=== PATIENT | female | born 1935 | race Caucasian/White ===

== ENCOUNTER 2018-10-09 08:05 | Outpatient (CLI) | payer OTHER ==
[~2018-10-09 08:05] MED LIST: ALDOMET500 MG PO; PEPCID40 MG PO; ZOFRAN4 MG PO; [UNRECOGNIZED DRUG - OTHER] PO
== END 2018-10-09 08:10 | disposition home or self-care (01) ==
LOC: RAD 08:05
DX: R31.29 Other microscopic hematuria (principal)

== ENCOUNTER → 2018-10-09 08:18 | Outpatient (CLI) | payer OTHER | END | disposition home or self-care (01) | LOC: LAB 08:18 | DX: R80.8 Other proteinuria (principal); I10 Essential (primary) hypertension ==

== ENCOUNTER 2022-10-23 13:13 | Emergency (ER) | payer OTHER ==
[~2022-10-23] VITALS: Ht 177.8 cm; Wt 65.8 kg
[2022-10-23] MEDS ORDERED: COZAAR25 MG (13:18)
[2022-10-23] MEDS ORDERED: ARICEPT5 MG (13:18)
== END 2022-10-23 19:04 | disposition home or self-care (01) ==
LOC: ER 13:13
PROVIDERS: Emergency Medicine
DX: I95.9 Hypotension, unspecified (principal)

== ENCOUNTER 2023-01-05 19:02 | Emergency (ER) | payer OTHER ==
[~2023-01-05] VITALS: Ht 157.5 cm; Wt 81.6 kg
[~2023-01-05 19:02] MED LIST changes: +ARICEPT5 MG; +COZAAR25 MG
[2023-01-05 20:36] LABS: HEMATOCRIT 40.1 % (36.0-45.00); HEMOGLOBIN 13.8 g/dL (12.0-15.00); MEAN CELL VOLUME 90.3 fL (80.00-100.00); MEAN CORPUSCULAR HEMOGLOBIN 31.1 pg (27.00-32.0); MEAN CORPUSCULAR HGB CONC 34.5 g/dl (32.0-36.0); PLATELET COUNT 158 K/uL (150-450); RED BLOOD COUNT 4.44 M/uL (4.00-6.00)
[2023-01-05 20:56] LABS: INR 1.04; PARTIAL THROMBOPLASTIN TIME 28.5 SECONDS (22.0-34.0); PROTHROMBIN TIME 10.9 SECONDS (9.0-11.5)
[2023-01-05 20:59] LABS: PH,URINE 8.5 (5.0-8.0); URINE APPEARANCE Cloudy; URINE BILIRRUBIN Negative (NEGATIVE); URINE BLOOD Negative; URINE COLOR Dark Yellow; URINE GLUCOSE Negative (NEGATIVE); URINE LEUKOCYTE Negative; URINE NITRATE Negative; URINE PROTEIN 30 (NEGATIVE)
[2023-01-05 21:02] LABS: URINE BACTERIA 178.8 uL (0.0-1933); URINE RBC 135.8 uL (0.0-20.8)
[2023-01-05 21:02] LABS: ALBUMIN 3.1 gm/dL (3.4-5.0); BILIRUBIN TOTAL 0.84 mg/dL (0.3-1.2); CALCIUM 9.8 mg/dL (8.5-10.1); CREATININE SERUM 0.8 mg/dL (0.55-1.02); GFR 67.85; GLOBULINA 3.7 G/DL (2.4-3.5); POTASSIUM 3.39 mEq/L (3.5-5.1); TOTAL PROTEIN 6.8 gm/dL (6.4-8.2)
[2023-01-05 21:09] LABS: URINE EPITHELIAL CELLS 0.9 uL (0.0-38.8)
== END 2023-01-06 00:27 | disposition home or self-care (01) ==
LOC: ER 19:02
PROVIDERS: General Practice
DX: R33.8 Other retention of urine (principal); I10 Essential (primary) hypertension; G30.8 Other Alzheimer's disease; F02.80 Dementia in other diseases classified elsewhere, unspecified severity, without behavioral disturbance, psychotic disturbance, mood disturbance, and anxiety; Z20.822 Contact with and (suspected) exposure to COVID-19; K59.00 Constipation, unspecified; D25.9 Leiomyoma of uterus, unspecified; K44.9 Diaphragmatic hernia without obstruction or gangrene

== ENCOUNTER 2023-09-17 17:21 | Emergency (ER) | payer OTHER ==
[~2023-09-17] VITALS: Ht 165.1 cm; Wt 68.0 kg
[2023-09-17 18:14] LABS: HEMATOCRIT 39.9 % (36.0-45.00); HEMOGLOBIN 13.9 g/dL (12.0-15.00); MEAN CELL VOLUME 91.1 fL (80.00-100.00); MEAN CORPUSCULAR HEMOGLOBIN 31.7 pg (27.00-32.0); MEAN CORPUSCULAR HGB CONC 34.8 g/dl (32.0-36.0); PLATELET COUNT 184 K/uL (150-450); RED BLOOD COUNT 4.37 M/uL (4.00-6.00); RED CELL DISTRIBUTION WIDTH 13.3 % (11.5-14.5)
[2023-09-17 18:47] LABS: ALBUMIN 3.6 gm/dL (3.4-5.0); BILIRUBIN TOTAL 0.51 mg/dL (0.3-1.2); CALCIUM 9.8 mg/dL (8.5-10.1); CREATININE SERUM 0.91 mg/dL (0.55-1.02); GFR 58.34; GLOBULINA 3.2 G/DL (2.4-3.5); POTASSIUM 4.01 mEq/L (3.5-5.1); TOTAL PROTEIN 6.8 gm/dL (6.4-8.2)
[2023-09-17] MEDS ORDERED: NA PHOS,M-B/NA PHOS,DI-BA 1 BOTTLE ENEMA RECTAL ONE (19:30)
[2023-09-17] MEDS ORDERED: MINERAL OIL 30 ML BLIST.PACK PO ONE (19:30)
[2023-09-17] MEDS ORDERED: LACTULOSE 10 G/15 ML ML PO ONE (19:30)
[2023-09-17] MEDS ORDERED: MAGNESIUM HYDROXIDE 400 MG/5 ML ML PO ONE (19:30)
[2023-09-17] MEDS ORDERED: 0.9 % SODIUM CHLORIDE 1,000 ML IV ONE (19:30)
== END 2023-09-17 23:25 | disposition home or self-care (01) ==
LOC: ER 17:22
PROVIDERS: General Practice
DX: K56.41 Fecal impaction (principal); I10 Essential (primary) hypertension; G30.9 Alzheimer's disease, unspecified; F02.80 Dementia in other diseases classified elsewhere, unspecified severity, without behavioral disturbance, psychotic disturbance, mood disturbance, and anxiety